=== PATIENT | female | born 1985 | race Caucasian/White ===

== ENCOUNTER 2017-12-18 23:06 | Emergency (ER) | payer OTHER ==
[~2017-12-18] VITALS: Ht 172.7 cm; Wt 68.0 kg
[~2017-12-18 23:06] MED LIST: ACETAMINOPHEN-1 EAC1 PO; BACTRIM DS TAB1 EACH PO; BENADRYL25 MG PO; CLEOCIN HCL300 MG PO; IBUPROFEN 800800 M1 PO; IRON325; KENALOG60 GM TP; NOHOMEMEDICATIONS; NORCO 5-325 TA1 EACH PO; PREDNISONE 20 M20 M1 PO
[2017-12-18] MEDS ORDERED: KEFLEX500 M1 PO (23:20)
[2017-12-18] MEDS ORDERED: BACTRIM DS TAB1 EACH PO (23:20)
[2017-12-18 23:26] VITALS: BP 132/81
== END 2017-12-18 23:28 | disposition home or self-care (01) ==
LOC: M.ERS 23:06
DX: H00.031 Abscess of right upper eyelid (principal); Z88.0 Allergy status to penicillin

== ENCOUNTER 2017-12-24 11:59 | Emergency (ER) | payer OTHER ==
[~2017-12-24] VITALS: Ht 172.7 cm; Wt 52.2 kg
[~2017-12-24 11:59] MED LIST changes: +KEFLEX500 M1 PO
[2017-12-24] MEDS ORDERED: CLEOCIN HCL150 MG PO (12:59)
[2017-12-24 13:47] VITALS: BP 120/69
== END 2017-12-24 13:47 | disposition home or self-care (01) ==
LOC: M.ERS 11:59
DX: H44.001 Unspecified purulent endophthalmitis, right eye (principal); L27.0 Generalized skin eruption due to drugs and medicaments taken internally; T37.0X5A Adverse effect of sulfonamides, initial encounter; Z88.0 Allergy status to penicillin; Z90.49 Acquired absence of other specified parts of digestive tract; Y92.89 Other specified places as the place of occurrence of the external cause

== ENCOUNTER 2020-08-16 23:33 | Emergency (ER) | payer OTHER ==
[~2020-08-16] VITALS: Ht 172.7 cm; Wt 72.6 kg
[~2020-08-16 23:33] MED LIST changes: +CLEOCIN HCL150 MG PO
[2020-08-17 00:08] LABS: ABSOLUTE EOSINOPHILS 0.1 thou/uL (0.0-0.7); ABSOLUTE LYMPHOCYTES 2.6 thou/uL (0.8-5.3); ABSOLUTE MONOCYTES 0.7 thou/uL (0.0-1.2); ABSOLUTE NEUTROPHILS 8.8 thou/uL (1.6-8.1); BASOPHILS 0.4 %; EOSINOPHILS 1.2 %; HEMATOCRIT 39.3 % (37.0-47.0); HEMOGLOBIN 13.6 gm/dL (12.0-15.0); MCH 32.8 pg (26.0-34.0); MCHC 34.6 g/dL (28.0-37.0); MCV 94.8 fL (80.0-100.0); MONOCYTES 5.7 %; MPV 7.3 fl. (7.2-11.1); NUCLEATED RBCS 0 /100WBC; PLATELET COUNT* 385 thou/uL (150-400); POLYS 71.7 %; RBC 4.15 mil/uL (4.20-5.00); RDW-CV 12.3 % (10.5-14.5); WBC 12.3 thou/uL (4.0-11.0)
[2020-08-17 00:13] LABS: CREATININE 0.6 mg/dL (0.6-1.3)
[2020-08-17 00:18] LABS: ALBUMIN 3.2 g/dL (3.4-5.0); TOTAL BILIRUBIN 0.1 mg/dL (<0.1-1.0); TOTAL PROTEIN 7.8 g/dL (6.4-8.2)
[2020-08-17] MEDS ORDERED: IBUPROFEN 800800 MG PO (00:38)
[2020-08-17] MEDS ORDERED: CLINDAMYCIN HC150 MG PO (00:38)
[2020-08-17] MEDS ORDERED: HYDROCODON-ACE1 EAC7 PO (00:38)
[2020-08-17 02:11] VITALS: BP 135/84
== END 2020-08-17 02:11 | disposition home or self-care (01) ==
LOC: M.ERS 23:33
PROVIDERS: Personal Emergency Response Attendant
DX: T24.232A Burn of second degree of left lower leg, initial encounter (principal); T31.0 Burns involving less than 10% of body surface; X19.XXXA Contact with other heat and hot substances, initial encounter; Y93.89 Activity, other specified; Y92.89 Other specified places as the place of occurrence of the external cause; Y99.8 Other external cause status; Z90.89 Acquired absence of other organs; Z90.49 Acquired absence of other specified parts of digestive tract; Z98.890 Other specified postprocedural states; Z88.0 Allergy status to penicillin; Z88.2 Allergy status to sulfonamides; Z88.1 Allergy status to other antibiotic agents

== ENCOUNTER 2021-04-11 23:41 | Emergency (ER) | payer OTHER ==
[~2021-04-11] VITALS: Ht 172.7 cm; Wt 74.8 kg
[~2021-04-11 23:41] MED LIST changes: +CLINDAMYCIN HC150 MG PO; +HYDROCODON-ACE1 EAC7 PO; +IBUPROFEN 800800 MG PO
[2021-04-11 23:54] VITALS: BP 135/88
== END 2021-04-12 02:00 | disposition left against medical advice (07) ==
LOC: M.ERS 23:41
DX: Z53.21 Procedure and treatment not carried out due to patient leaving prior to being seen by health care provider (principal)

== ENCOUNTER 2021-11-02 18:22 | Emergency (ER) | payer OTHER ==
[~2021-11-02] VITALS: Ht 172.7 cm; Wt 70.3 kg
[2021-11-02] MEDS ORDERED: IBUPROFEN 800800 MG PO (19:53)
[2021-11-02 20:06] VITALS: BP 134/78
== END 2021-11-02 20:02 | disposition home or self-care (01) ==
LOC: M.ERS 18:22
DX: S92.334A Nondisplaced fracture of third metatarsal bone, right foot, initial encounter for closed fracture (principal); Z98.890 Other specified postprocedural states; Z90.89 Acquired absence of other organs; Z90.49 Acquired absence of other specified parts of digestive tract; Z88.2 Allergy status to sulfonamides; Z88.0 Allergy status to penicillin; W01.0XXA Fall on same level from slipping, tripping and stumbling without subsequent striking against object, initial encounter; Y93.89 Activity, other specified; Y92.89 Other specified places as the place of occurrence of the external cause; Y99.8 Other external cause status